=== PATIENT | male | born 1970 | race Caucasian/White ===

== ENCOUNTER 2022-05-23 07:56 | Day surgery (SDC) | payer BC ==
[2022-05-21 14:07] VITALS: BMI 36.2
[2022-05-23] MEDS ORDERED: Bupivacaine HCl 0.5%/Epinephrine 1:200,000/PF 30 ml Vial ONE (10:20)
[2022-05-23] MEDS ORDERED: Thrombin 5000 UNITS/5 ML VIAL ONE (10:20)
[2022-05-23] MEDS ORDERED: Neomycin-Polymyxin 1 ML AMP ONE (10:20)
[2022-05-23] MEDS ORDERED: Vancomycin 500 MG VIAL (PEDI) ONE (10:20)
[2022-05-23] MEDS ORDERED: Vancomycin 1 GM VIAL ONE (10:21)
[2022-05-23] MEDS ORDERED: Sodium Chloride 0.9% 100 ML ONE ×2 (10:28→15:14)
[2022-05-23] MEDS ORDERED: CEFAZOLIN 2 GM VIAL ONE ×2 (10:28→15:14)
[2022-05-23] MEDS ORDERED: Midazolam HCl 2 mg/2 ml Vial ONE (10:28)
[2022-05-23] MEDS ORDERED: Fentanyl 250 MCG/5 ML VIAL ONE (10:35)
[2022-05-23] MEDS ORDERED: Lidocaine 1% PF 5 ML VIAL ONE (10:41)
[2022-05-23] MEDS ORDERED: Glycopyrrolate 0.2 MG/ML 5 ML SYRINGE ONE (10:41)
[2022-05-23] MEDS ORDERED: NEOSTIGMINE 3 MG/3 ML SYR 3 MG/3 ML SYRINGE ONE (10:41)
[2022-05-23] MEDS ORDERED: Dexamethasone 20 MG/5 ML VIAL ONE (10:41)
[2022-05-23] MEDS ORDERED: Ondansetron PF 4 MG/2 ML Vial ONE (10:41)
[2022-05-23] MEDS ORDERED: PROPOFOL 200 MG/20 ML VIAL ONE (10:41)
[2022-05-23] MEDS ORDERED: Rocuronium Bromide 10 MG/ML (10ML VIAL) ONE (10:41)
[2022-05-23] MEDS ORDERED: Ondansetron HCl/PF 4 MG/2 ML Vial IVP PRN (14:16)
[2022-05-23] MEDS ORDERED: Promethazine HCl 25 MG/ML VIAL IM PRN (14:16)
[2022-05-23] MEDS ORDERED: HYDROmorphone 2 MG/ML VIAL SLOW IVP PRN (14:16)
[2022-05-23] MEDS ORDERED: Morphine Sulfate 2 MG/ML SYRINGE SLOW IVP PRN (14:16)
[2022-05-23] MEDS ORDERED: PACU-Morphine 4MG/ML VIAL SLOW IVP PRN (14:16)
[2022-05-23] MEDS ORDERED: FENTANYL 50 MCG/ML 1 ML VIAL ONE (14:19)
[2022-05-23] MEDS ORDERED: Tamsulosin HCl 0.4 MG CAP ONE (14:19)
== END 2022-05-23 16:30 | disposition home or self-care (01) ==
LOC: SDC 07:56
PROVIDERS: ATTEND Neurological Surgery
PROC: 01NB0ZZ Release Lumbar Nerve, Open Approach (ICD-10-PCS; principal; 2022-05-23)
DX: M48.062 Spinal stenosis, lumbar region with neurogenic claudication (principal); M51.16 Intervertebral disc disorders with radiculopathy, lumbar region; M19.90 Unspecified osteoarthritis, unspecified site; E78.00 Pure hypercholesterolemia, unspecified; M10.9 Gout, unspecified; F17.220 Nicotine dependence, chewing tobacco, uncomplicated; Z79.899 Other long term (current) drug therapy; Z88.8 Allergy status to other drugs, medicaments and biological substances; Z91.018 Allergy to other foods
CPT/HCPCS: J2250; J3010; J3370; J3371; J3490